=== PATIENT | male | born 1980 | race Caucasian/White ===

== ENCOUNTER 2016-07-28 07:58 | Emergency (ER) | payer BC, OTHER ==
[2016-07-28 08:10] VITALS: BP 144/89; BMI 31.1
--- NOTE | 2016-07-28 08:42 | DR.GENAD ---
HPI - PCP Primary Care Physician: silvestre - HPI Comment HPI Comment: Persistent pain in left ear radiating into the left cheek and behind the left eye which kept him awake through the night; no drainage, fever or chills; no sore throat, cough, nausea or vomiting; he took ibu 800 with minimal relief this morning. - Complaint/Symptoms Chief Complaint:: patient stated his left ear has been hurting since yesterday and has a knot behind his left ear. - Source History Provided: Patient - Mode of Arrival Mode of Arrival: Ambulatory - Timing Onset of Chief Complaint: 07/27/16 PMH - PMH Past Medical History: No Past Medical History: GERD Past Surgical History: Yes Surgical History: Appendectomy - Family History History of Family Medical Conditions: No Family Medical History: [place], Coronary Artery Disease, Hypertension - Social History Does patient currently use any type of tobacco product: No Have you used tobacco products in the last 12 months: No Type of Tobacco Use: None Does any household member use tobacco: No Alcohol Use: None Do you use any recreational Drugs:: No Lives With: Family Lives Where: Home - infectious screening In the last 2 months have you had wt loss of >10#?: NO Have you had fever, night sweats or hemotysis?: No Have you traveled outside the country in the last 6 months?: No Isolation: Standard ROS - Review of Systems Constitutional: No Symptoms Reported Eyes: No Symptoms Reported ENTM: See HPI Respiratoy: No Symptoms Reported Cardiovascular: No Symptoms Reported Gastrointestinal/Abdominal: No Symptoms Reported Genitourinary: See HPI Neurological: See HPI PE - Vital Signs Vitals: Temperature 98.6 F Pulse Rate 86 Respiratory Rate 16 Blood Pressure 144/89 O2 Sat by Pulse Oximetry 98 - General Limitations: No Limitations - Eyes Eye exam: Normal Appearance - ENT External Ear Exam: Pain with Movement, External Tenderness, Periauricular Adenopathy, Other (minimal swelling and tenderness over lower left cheek; no redness) TM/Canal Exam: Left Effusion Throat Exam: Normal Inspection - Neck Neck Exam: Normal Inspection, Full ROM - Chest Chest Inspection: Normal Inspection - Respiratory Respiratory Exam: Normal Lung Sounds Bilat Respiratory Exam: Bilateral Clear to Auscultation - Cardiovascular Cardiovascular Exam: Regular Rate, Normal Rhythm - Abdominal Exam Abdominal Exam: Normal Inspection - Extremities Extremities Exam: Normal Inspection - Neurologic Neurological Exam: Alert, Oriented X3, CN II-XII Intact - Psychiatric Psychiatric Exam: Normal Affect, Normal Mood - Skin Skin Exam: Warm - Diagnosis Discharge Problem: Left otitis media with effusion - Discharge Plan Disposition: 01 HOME, SELF-CARE Condition: Stable Prescriptions: Amoxicillin & Pot Clavulanate [AUGMENTIN TAB 875 mg/125 mg *] 1 tab PO BID #20 tab Ketorolac Tromethamine [Toradol Tab] 10 mg PO Q8H PRN #12 tab PRN Reason: Pain [id number] (Otic) [Cortisporin Otic Susp] 3 drop AFF EAR TID #1 ea - Follow ups/Referrals Follow ups/Referrals: CALLIE OLGUIN [Primary Care Provider] - 3 days - Instructions Instructions: Otitis Media, Adult, [id number] Additional Instructions: return to work on Sunday
== END 2016-07-28 08:51 | disposition home or self-care (01) ==
LOC: ER 07:58
DX: H65.199 Other acute nonsuppurative otitis media, unspecified ear (principal)
CPT/HCPCS: 99281; 99282